=== PATIENT | female | born 1975 | race Caucasian/White ===

== ENCOUNTER 2016-04-19 16:29 | Emergency (ER) | payer OTHER ==
[2016-04-19 16:43] VITALS: RESP 16; TEMP 97.7
--- NOTE | 2016-04-19 16:49 | EDPHY ---
H & P Time Seen by Provider: 04/19/16 16:32 Constitutional: Initial Vital Signs Temperature (C) 36.5 C 04/19/16 16:35 Heart Rate 73 04/19/16 16:35 Respiratory Rate 16 04/19/16 16:35 Blood Pressure 137/99 H 04/19/16 16:35 O2 Sat (%) 98 04/19/16 16:35 O2 Delivery Mode Room Air Allergies/Adverse Reactions: lactose [Lactose] Allergy (Mild, Verified 05/21/09 14:18) GI UPSET Penicillins Allergy (Unknown, Verified 05/21/09 14:18) HAD CHILD Medical Decision Making ED Course/Re-evaluation: CHIEF COMPLAINT: Abdominal pain, "pulsing" HISTORY OF PRESENT ILLNESS: The patient is a 40 y/o female arriving with her complaining of abdominal pain worsening since 04/15/16, 4 days ago, and now associated with a pulsing sensation in the area. She says on the she was playing volleyball and dove for the ball. She immediately felt a tearing sensation in her lower left abdominal region. The pain has not improved since then. Today she noticed a throbbing pulse in the area so her directed her to come into the ED. She believes she tore an abdominal muscle. Her pain is aggravated by sitting up. No history of abdominal surgeries or other pertinent medical history. REVIEW OF SYSTEMS: A 10 point review of systems was performed and is negative with the exception of the elements mentioned in the history of present illness. PHYSICAL EXAM: General Appearance: Alert, well hydrated, appropriate, and non-toxic appearing. Head: Atraumatic without scalp tenderness or obvious injury Eyes: Pupils equal, round, reactive to light and accommodation, EOMI, no trauma , no injection. Ears: Clear bilaterally, no perforation, normal landmarks Nose: Atraumatic, no rhinorrhea, clear. Throat: There is no erythema or exudates, no lesions, normal tonsils, mucus membranes moist. Neck: Supple, 2+ carotid upstroke, non-tender, no lymphadenopathy. Respiratory: No retractions, no distress, no wheezes, and no accessory muscle use. Lungs are clear to auscultation bilaterally. Cardiovascular: Regular rate and rhythm, no murmurs, rubs, or gallops. Bilateral carotid, radial, dorsalis pedis, and posterior tibial pulses intact. Good capillary refill all extremities. Gastrointestinal: Abdomen is soft, non-tender, non-distended, no masses, no rebound, no guarding, no peritoneal signs. Musculoskeletal: Normal active ROM of all extremities, atraumatic. Neurological: Alert, appropriate, and interactive. The patient has normal DTRs and non-focal cranial nerves, motor, sensory, and cerebellar exam. Skin: No rashes, good turgor, no nodules on palpation. 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 DIAGNOSTICS/PROCEDURES/CRITICAL CARE TIME: Study: Ultrasound of the: Abdomen Indication: Pain Results: US scan of the abdomen was obtained. The results of the study are negative. The study was read by the radiologist, Dr. Price. I viewed the images myself on the PACS system. DIFFERENTIAL DIAGNOSIS: The differential diagnosis for the patient's abdominal pain included but was not limited to torn abdominal muscle, ovarian cyst, pelvic inflammatory disease, ovarian torsion, urinary tract infection, ectopic , cholecystitis, and appendicitis. MEDICAL DECISION MAKING: This is a healthy 40 y/o female presenting with LLQ abdominal pain onset 4-days ago after an injury while playing volleyball. She reports feeling a pulse in this area today and her became concerned about an aneurysm. I can feel a femoral pulse in the appropriate area, but do not appreciate a pulse in her abdomen. She most likely has a strained abdominal muscle, but I also have concern for a femoral hernia. Plan for abdominal ultrasound. 1835: US is negative per Dr. Price. I discussed these results with the patient. She likely has a muscle strain. She understands she can follow up with her PCP as needed. Return precautions given. She is comfortable with this plan. Departure - Departure Disposition: Home, Routine, Self-Care Clinical Impression: Abdominal muscle strain Condition: Good Instructions: Muscle Strain (ED) Additional Instructions: 1. Use Tylenol or ibuprofen as directed on the packaging as needed for pain for the next week. 2. Follow up with your primary care provider for symptoms not improved over the next week. 3. Return to the ED for chest pain, shortness of breath, or other worsening of condition. Referrals: Stephany Nogueira PA [Primary Care Provider] - As per Instructions Report Scribed for: Que Eugene Report Scribed by: Pennie Pierce Date of Report: 04/19/16 Time of Report: 16:50
[2016-04-19 18:53] VITALS: BP 133/90; PULSE 71; O2SAT 96
--- NOTE | 2016-04-19 19:15 | US ---
Limited Abdominal Ultrasound April 19, 2016 Indication: Left groin pain. Evaluate for hernia. Technique: The left groin was evaluated in the supine and standing positions with and without Valsalv a maneuver. Findings: The left inguinal structures are normal. No hernia, fluid collection, or evidence of muscle tear. Impression: Negative. No evidence of inguinal hernia. Comment: The results were discussed with Dr. Que Eugene.
== END 2016-04-19 18:52 | disposition home or self-care (01) ==
DX: S39.011A Strain of muscle, fascia and tendon of abdomen, initial encounter (principal); X58.XXXA Exposure to other specified factors, initial encounter; Y99.8 Other external cause status; Y93.68 Activity, volleyball (beach) (court)

== ENCOUNTER → 2016-10-07 | Outpatient (CLI) | payer OTHER | LOC: FIMAGING 13:58 | PROVIDERS: ATTEND Physician Assistant | DX: Z12.31 Encounter for screening mammogram for malignant neoplasm of breast (principal) | CPT/HCPCS: G0202 ==

== ENCOUNTER → 2017-10-11 | Outpatient (CLI) | payer OTHER | LOC: FIMAGING 15:00 | PROVIDERS: ATTEND Physician Assistant | DX: Z12.31 Encounter for screening mammogram for malignant neoplasm of breast (principal) ==